=== PATIENT | male | born 1960 ===

== ENCOUNTER → 2023-10-20 | Outpatient (CLI) | payer MEDICARE | END | disposition home or self-care (01) | LOC: Rad HDHVI 14:57 | PROVIDERS: ATTEND Internal Medicine Cardiovascular Disease | DX: I34.0 Nonrheumatic mitral (valve) insufficiency (principal); I10 Essential (primary) hypertension; R55 Syncope and collapse | CPT/HCPCS: 93306 ==

== ENCOUNTER → 2023-10-27 | Outpatient (CLI) | payer MEDICARE ==
[~2023-10-27] VITALS: Ht 177.8 cm; Wt 49.0 kg
[~2023-10-27] MED LIST: ADENOSINE 41 MG in GIVE UN-DILUTED 0 ML IV ONE; ADENOSINE 90 MG/30 ML INJ IV ONE
== END | disposition home or self-care (01) ==
LOC: Rad HDHVI 09:29
PROVIDERS: ATTEND Internal Medicine Cardiovascular Disease
DX: I49.3 Ventricular premature depolarization (principal); I10 Essential (primary) hypertension; R55 Syncope and collapse
CPT/HCPCS: 78452; 93005; 96374; 96375; A9500; J0153

== ENCOUNTER 2024-12-13 12:57 | Outpatient (CLI) | payer MEDICARE, OTHER | END 2024-12-13 17:00 | disposition home or self-care (01) | LOC: Rad HDHVI 12:57 | PROVIDERS: ATTEND Internal Medicine Cardiovascular Disease | DX: I10 Essential (primary) hypertension (principal); R55 Syncope and collapse | CPT/HCPCS: 93306 ==